=== PATIENT | male | born 1965 | race Two or more races ===

== ENCOUNTER → 2024-07-19 | Emergency (ER) | payer OTHER ==
[~2024-07-19] VITALS: Ht 170.2 cm; Wt 73.5 kg
[~2024-07-19] MED LIST: AMLODIPINE-OLM1 EAC2 PO; ASPIRIN 81 MG TAB.CHEW PO STA; ATORVASTATIN CALCIUM 40 MG TABLET PO STA; CLOPIDOGREL BISULFATE 75 MG TABLET PO ONE; CLOPIDOGREL BISULFATE 75 MG TABLET PO STA; GLUMETZA1000 MG PO; HEPARIN SODIUM,PORCINE 5,000 UNITS/ML VIAL ONE; HEPARIN SODIUM,PORCINE 5,000 UNITS/ML VIAL SUBCUTANEO STA; HYDRALAZINE HCL10 MG PO; INSULIN REGULAR, HUMAN 1,000 UNIT/10 ML UNITS IV STA; INSULIN REGULAR, HUMAN 1,000 UNIT/10 ML UNITS SUBCUTANEO STA; KETOROLAC TROMETHAMINE 30 MG VIAL IV STA; KETOROLAC TROMETHAMINE 30 MG VIAL ONE; NITROGLYCERIN IN 5 % DEXTROSE 250 ML IV SCH; NITROGLYCERIN IN 5 % DEXTROSE 50 MG/250 ML BOTTLE IV ONE; NITROGLYCERIN IN 5 % DEXTROSE 50 MG/250 ML KIT IV STA; RINGERS SOLUTION,LACTATED 1,000 ML IV STA; TOPROL XL100 M1 PO
[2024-07-19 02:33] LABS: HEMATOCRIT 47.2 % (39.0-48.0); MEAN CELL VOLUME 87.4 fL (80.0-100.00); MEAN CORPUSCULAR HGB CONC 34.9 g/dl (32.0-36.0); PLATELET COUNT 306 K/uL (150-450); RED BLOOD COUNT 5.39 M/uL (4.00-6.00); RED CELL DISTRIBUTION WIDTH 14.2 % (11.5-14.5)
[2024-07-19 02:39] LABS: HEMOGLOBIN 16.5 g/dL (13-16.00); MEAN CORPUSCULAR HEMOGLOBIN 30.6 pg (27.00-32.0)
[2024-07-19 02:46] LABS: CALCIUM 8.9 mg/dL (8.5-10.1); CREATININE SERUM 0.91 mg/dL (0.70-1.30); GFR 85.27; POTASSIUM 3.95 mEq/L (3.5-5.1)
== END | disposition designated cancer center or children's hospital (05) ==
LOC: ER 01:10
DX: I24.9 Acute ischemic heart disease, unspecified (principal); I10 Essential (primary) hypertension; R73.9 Hyperglycemia, unspecified